=== PATIENT | female | born 1995 | race Hispanic/Latino ===

== ENCOUNTER 2016-03-22 23:20 | Inpatient (IN) | payer MEDICAID ==
[~2016-03-22] VITALS: Ht 157.5 cm; Wt 65.3 kg
[~2016-03-22 23:20] MED LIST: BENZ-12 PO; Methylergonovine 0.2 mg/mL Inj IM ONE
[2016-03-23] MEDS ORDERED: Hemorrhage Kit, Post Partum XX ONE ×2 (00:20→09:00)
[2016-03-23] MEDS ORDERED: fentaNYL-PF 50 mCg/mL 2 mL Inj IVPUSH PRN (00:20)
[2016-03-23] MEDS ORDERED: Sodium Chloride LOK Flush 10 mL Syringe IVFLUSH PRN (00:20)
[2016-03-23] MEDS ORDERED: Methylergonovine 0.2 mg/mL Inj IM PRN ×2 (00:20→09:00)
[2016-03-23] MEDS ORDERED: Oxytocin 30 Units/500 mL LR 30 UNITS in IV Premix 1 EACH IV PRN ×2 (00:20→09:00)
[2016-03-23] MEDS ORDERED: Carboprost 250 mCg/mL Inj IM PRN ×2 (00:20→09:00)
[2016-03-23] MEDS ORDERED: Oxytocin 10 Unit/mL Inj IM PRN ×2 (00:20→09:00)
[2016-03-23 00:28] LABS: Mean Corpuscular Hemoglobin 32.8 pg (27.0-35.0); Mean Corpuscular Volume 94.2 fL (81-100)
[2016-03-23] MEDS: Lactated Ringer's 1,000 ML IV PRN ×2 (00:56→02:25)
--- NOTE | 2016-03-23 08:45 | HP ---
[address] [address] HISTORY AND PHYSICAL PATIENT: NEERAJ LIMON : 1995 MR#: [id number] ADMIT: 03/22/2016 JOB ID: [id number] HISTORY OF PRESENT ILLNESS: This is a 20-year-old female. She is 1, para 0, and she is 39 weeks. She presented to [facility] for contraction. It was noticed she was 4 cm dilated, with bulging membrane. Contraction was every 3-5 minutes. Her membranes intact. The heart tracing was category 1. She has no other complaints. The patient has been having routine care at [facility]. Her labs were noticed that her blood type was O positive. She is rubella immune. RPR negative. HBsAg negative. HIV negative. She is GBS negative. She has no known drug allergies. She declined other medical problems besides hypothyroidism, which she was on 50 mcg of levothyroxine and her TSH level in normal range during . She declined other surgeries before. She declined smoking, alcohol or drug usage in . PHYSICAL EXAMINATION: She is afebrile. Her vitals stable in normal range. Cardiac: RRR. No murmur. Pulmonary: Bilaterally clear. Abdomen: Soft, , liz every 3-5 minutes. Category 1 heart tracing. Cervix was 4 cm dilated, intact membranes. Extremities nontender. ASSESSMENT AND PLAN: A 30-year-old female, 1, para 0, at 39 weeks in active labor. 1. We will admit her to [facility]. 2. Offered the patient pain medication for her IV and epidural if she needed. 3. At this time, we will do expectant management to watch for labor progress. Expect a vaginal delivery.
[2016-03-23] MEDS: Lactated Ringer's 1,000 ML IV SCH ×2 (08:59→16:59)
[2016-03-23] MEDS ORDERED: LANOlin HPA 7 Gm Ointment TOPICAL PRN (09:00)
[2016-03-23] MEDS ORDERED: Witch Hazel-Glycerin Pads TOPICAL PRN (09:00)
[2016-03-23] MEDS ORDERED: Benzocaine (Dermoplast) 20% 60 Gm Spray TOPICAL PRN (09:00)
--- NOTE | 2016-03-23 09:19 | PCM.HPOB ---
Subjective Date of Service: Mar 23, 2016 Referring Provider: Admitting Physician: Lcuila Holman MD Primary Care Physician: Nopcp Attending Physician: Lucila Holman MD Chief Complaint Term labor History of Present History of Present Illness 20 y/o female at 39wks 5days per OB ultrasound on 11/24/15 who presented to the [facility] with contractions. complicated by hypothyroidism and late entry into care. TSH level in normal range during , currently on 50mcg of Levothyroxine daily. Pre-filomena labs: Blood type: O+ Rh (D) type positive Antibody screen negative GBS negative Rubella immune RPR nonreactive HBsAg negative HepC negative HIV screen nonreacdtive TSH 0.747 HbA1c 5.2 Hgb/Hct 10.6/33.8 OB Ultrasound >14wks anatomy (11/24/15): single living intrauterine gestation, GINO 03/25/16 . OB History: (1), Para (0) Past Medical History Gynecologic History: No hx of abnormal pap Medical History: Hypothyroidism Surgical History: None Hx Tobacco Use: No Hx Alcohol Use: No Hx Substance Use: No Past Family History Family History Maternal aunt-diabetes mellitus Living Arrangement: with Family Review of Systems ROS All other systems reviewed and negative, except as noted. Medications Home medications Ferrous sulfate 325mg daily Levothyroxine 50mcg daily Ondansetron 4mg q8h vitamin Allergy Coded Allergies: No Known Allergies (Unverified , 01/30/15) Exam Vital Signs temp 36.5, BP 134/95, HR 72 Objective Physical exam deferred to admitting Attending physician at time of note as patient was delivering. General appearance: well developed, well nourished and healthy appearing female undergoing vaginal delivery. Heart rate regular rate on monitor and status reassuring. Labs/Diagnostics Labs White Blood Count 8.0, Red Blood Count 4.66, Hemoglobin 15.3, Hematocrit 43.9, Mean Corpuscular Volume 94.2, Mean Corpuscular Hemoglobin 32.8, Mean Corpuscular Hemoglobin Concent 34.9, Red Cell Distribution Width 14.4, Platelet Count 129 Lab/Diagnostic Information Blood type: O+ Rh (D) type positive Antibody screen negative GBS negative Rubella immune RPR nonreactive HBsAg negative HepC negative HIV screen nonreacdtive Initial labs (11/17/15): TSH 0.747, HbA1c 5.2, H/H 10.6/33.8 OB Ultrasound >14wks anatomy (11/24/15): single living intrauterine gestation, GINO 03/25/16 Maternal Blood Type: O Hx Rho(D) Immune Globulin: Yes Antibody Screen: negative Group B Strep Results: Negative Rubella: Immune Lab History: Negative for: Hx HIV OB Intrapartum Assessment/Plan Assessment 20 y/o female at 39wks 5days who presented in active labor. Anticipate . Pain Evaluation: Adequate Pain Control Post plan: Continue routine post care Attending Statement The patient was seen and examined and I agree with the history, exam and plan as outlined in the note above. Liana Sena DO Mar 23, 2016 07:03 Nuvia Fagan MD Mar 31, 2016 09:28
--- NOTE | 2016-03-23 14:51 | OP ---
[address] [address] OPERATIVE REPORT PATIENT: NEERAJ LIMON : 1995 MR#: [id number] ADMIT: 03/22/2016 JOB ID: [id number] DATE OF SURGERY: 03/23/2016 PREOPERATIVE DIAGNOSIS(ES): 1. A 39+5 week intrauterine . 2. Hypothyroidism. POSTOPERATIVE DIAGNOSIS(ES): 1. A 39+5 week intrauterine . 2. Hypothyroidism. PROCEDURE PERFORMED: Spontaneous vaginal delivery of liveborn infant born on March 23, 2016 at 7:22 hours weighing 3143 g or 6 pounds 15 ounces, with Apgars of 8 at one minute, 9 at five minutes. SURGEON: Nuvia Fagan MD. ANESTHESIA: Local. ESTIMATED BLOOD LOSS: 700 cc. FLUID REPLACEMENT: Crystalloid in labor. COMPLICATIONS: None apparent. INDICATIONS: This is a 20-year-old G 1, P 0 female who presented at 39+ five weeks gestation complaining of regular uterine contractions. She was admitted in active labor. She was noted to have a bulging bag of water at the time of admission. She spontaneously ruptured on her own and progressed to complete shortly after admission. laboratory data showed blood type O positive, antibody screen negative, rubella immune, RPR nonreactive, HIV negative and GBS negative. DESCRIPTION OF PROCEDURE: The patient was noted to be complete and pushing so she was placed in the dorsal lithotomy position, prepped and draped in the usual sterile fashion for delivery. She pushed and the infant delivered spontaneously in the CHRISTIANO position over an intact perineum. A nuchal cord was noted and a single nuchal cord was reduced around the baby's neck. The anterior shoulder delivered easily, followed by the posterior shoulder and the remainder of the infant was then easily delivered. After a 60 second cord clamping delay, the cord was then clamped, cut, and the was on the mother's abdomen at this time. Cord blood was then obtained. The placenta was delivered intact spontaneously and passed off the table. Thirty units of Pitocin was placed in the IV bag to firm the uterus. Examination of the vaginal vault showed bilateral labial lacerations as well as a second-degree laceration. The right labial laceration was repaired with 4-0 Vicryl in a running, nonlocked fashion. The left labial laceration was repaired with 3-0 Vicryl in a running, nonlocking fashion. It was noted to be deeper than the opposite side. The second-degree laceration was repaired with 3-0 Vicryl in the standard fashion. The patient was noted to have some oozing so several bsisip-st-cwcly stitches were placed along the left labial laceration and along the left hymenal ring. The patient tolerated this procedure well. Recovered in labor and delivery with her infant. All sponge, needle and instrument counts were correct.
[2016-03-23] MEDS: Ascorbic Acid 500 mg Tablet PO SCH (16:35)
[2016-03-23] MEDS: oxyCODONE-Acetamin 5-325 mg Tablet PO PRN (23:59)
[2016-03-24] MEDS: Lactated Ringer's 1,000 ML IV SCH ×2 (00:59→07:51)
[2016-03-24 07:37] LABS: Mean Corpuscular Hemoglobin 32.7 pg (27.0-35.0); Mean Corpuscular Volume 96.8 fL (81-100)
--- NOTE | 2016-03-24 07:54 | PCM.PNOBPP ---
Subjective Date of Service Mar 24, 2016 Post : Spontaneous Vaginal Delivery Visit History 20 y/o now P1 female on post- day 1 after at 39wks 5days. complicated by hypothyroidism and late entry into care. TSH level in normal range during , currently on 50mcg of Levothyroxine daily. Pre-filomena labs: Blood type: O+ Rh (D) type positive Antibody screen negative GBS negative Rubella immune RPR nonreactive HBsAg negative HepC negative HIV screen nonreacdtive TSH 0.747 HbA1c 5.2 Hgb/Hct 10.6/33.8 OB Ultrasound >14wks anatomy (11/24/15): single living intrauterine gestation, GINO 03/25/16 Subjective Patient is doing well this morning. Pain well controlled with oral medications. She reports increased pain this morning but it is tolerable and she is due for more medication. Lochia is normal. She is ambulating and voiding without difficulty. She expresses concern about not receiving her home Levothyroxine yesterday. She plans on when she is more comfortable but for now bottle feeding is going well. She denies fever, chills, chest pain, shortness of breath, nausea of vomiting. Lochia: Normal Pain Management: PO pain meds Gastrointestinal: No N/V Postop Activity: Ambulating Independently Group B Strep Results: Negative Rubella: Immune Blood Type: O Labs Laboratory Tests 03/24/16 06:55: Exam Vital Signs Vital Signs temp 36.7, SBP range 91-113 and DBP range 94-70, HR 77, RR 16, SpO2 99% on room air. Vital Signs: VS reviewed, stable Exam Abdomen: Fundus firm, Abdomen soft, Abdomen appropriately tender : Voiding without difficulty Extremities: No tenderness/swelling Lungs: Clear to Auscultation Heart: Regular Rate/Rhythm General: Alert, Oriented X3 OB Post Assessment/Plan Assessment 20 y/o now P1 on day 1 from at 39wks 5days who is recovering appropriately. complicated by hypothyroidism with normal TSH during on 50mcd daily of Levothyroxine. Problems: (1) Spontaneous vaginal delivery Plan: -Patient is bottle feeding which is going well, plans to breast feed when she is more comfortable. -Continue support/teaching -PO pain medications as needed -Anticipate discharge today Status: Acute ICD Code: O80 (2) Hypothyroidism Qualifiers: Hypothyroidism type: unspecified Qualified Code: E03.9 - Hypothyroidism, unspecified Plan: -TSH normal during , pt asymptomatic -Continue home dosing Levothyroxine, 50mcg daily -Recommend follow up with PCP for repeat thyroid function testing. Status: Acute ICD Code: E03.9 Pain Management: Ibuprofen 800mg PO Q6h prn Oxycodone-acetaminophen 5-325mg PO Q4h prn . Pain Evaluation: Adequate Pain Control Post plan: Continue routine post care Attending Statement The patient was seen and examined together with Dr. Sena on 03/24/2016 and I agree with the history, exam and plan as outlined in the note above. / MD Nathen Kincaid Courtney M DO Mar 24, 2016 07:35 Mike Peoples MD Mar 31, 2016 09:45
[2016-03-24] MEDS: Ascorbic Acid 500 mg Tablet PO SCH (07:57)
[2016-03-24] MEDS: oxyCODONE-Acetamin 5-325 mg Tablet PO PRN (08:00)
--- NOTE | 2016-03-24 08:03 | PCM.DIOB ---
Obstetrical Disch Instruction Date of Service: Mar 24, 2016 Dates of Hospitalization Date of Hospital Admission Mar 22, 2016 at 23:40 Providers Admitting Physician: Lucila Holman MD Primary Care Physician: Cole Attending Physician: Lucila Holman MD Discharge Diagnosis Discharge Diagnosis Term with normal spontaneous vaginal delivery Hypothyroidism Problems: (1) Spontaneous vaginal delivery Status: Acute ICD Code: O80 (2) Hypothyroidism Qualifiers: Hypothyroidism type: unspecified Qualified Code: E03.9 - Hypothyroidism, unspecified Status: Acute ICD Code: E03.9 Diet Discharge Diet: No restrictions Activity Discharge Activity-General: Pelvic Rest for 6 weeks, Balance rest and activity Additional Instructions Discharge Instructions Continue your vitamin. Please take the iron and vitamin c together for your anemia. Do not take more pain medication (Percocet) than is necessary -- less is better. Percocet pills have Tylenol (acetaminophen) in them at 325mg per pill. Do not take Tylenol in addition to your pain medication but should take one or the other. Both iron and Percocet can give you constipation so you have also been given a prescription for docusate to keep you regular. Pelvic rest for 6 weeks (nothing per vagina including intercourse, tampons) If you have a fever greater than 100.4, please call [facility]. There is always someone carbon blocks press operator to talk to. If you have an increase in bleeding, call [facility]. If you have a lot of bleeding suddenly, especially if you have symptoms of dizziness & weakness with it, get emergency help. Be sure to follow up in 6 weeks at [facility]. When you see [facility] in 6 weeks, you will be informed of the results of all the labs. If you start experiencing extreme depression, especially if you feel that you are a danger to yourself or your family, seek emergency help. You have been through a lot -- BE SURE TO TAKE CARE OF YOURSELF. Follow Up Plan Follow Up Plan Follow up at [facility] in 6 weeks. [facility] Call your provider for: Fever or Chills, Shortness of breath, Heavy vaginal bleeding, Excessive constipation Liana Sena DO Mar 24, 2016 08:03
--- NOTE | 2016-03-24 08:19 | PCM.DC.OB ---
Obstetrical Discharge Summary Date of Service Mar 24, 2016 Date of hospital admission Mar 22, 2016 at 23:40 Date of Discharge: Mar 24, 2016 Providers Admitting Physician: Lucila Holman MD Primary Care Physician: Cole Attending Physician: Lucila Holman MD Diagnosis at Time of Discharge Term with normal spontaneous vaginal delivery Hypothyroidism Problems: (1) Spontaneous vaginal delivery Status: Acute ICD Code: O80 (2) Hypothyroidism Qualifiers: Hypothyroidism type: unspecified Qualified Code: E03.9 - Hypothyroidism, unspecified Status: Acute ICD Code: E03.9 Brief History and Physical: 20 y/o now P1 on day #1 from at 39wks 5days who is recovering appropriately. Vital Signs: temp 36.7, SBP range 91-113 and DBP range 94-70, HR 77, RR 16, SpO2 99% on room air. General: Alert, oriented x3 Abdomen: Fundus firm, Abdomen soft, Abdomen appropriately tender : Voiding without difficulty Extremities: No tenderness/swelling Lungs: Clear to Auscultation Heart: Regular Rate/Rhythm . Hospital Course: 20 y/o female who presented at 39wks 5days per OB ultrasound on 11/24/15 with contractions and underwent after SROM. complicated by hypothyroidism and late entry into care. TSH level in normal range during , currently on 50mcg of Levothyroxine daily. She was discharged on day #1 in stable condition and follow up planned in 6wks. Pre- labs: Blood type: O+ Rh (D) type positive Antibody screen negative GBS negative Rubella immune RPR nonreactive HBsAg negative HepC negative HIV screen nonreacdtive TSH 0.747 HbA1c 5.2 Hgb/Hct 10.6/33.8 OB Ultrasound >14wks anatomy (11/24/15): single living intrauterine gestation, GINO 03/25/16 . ([Ascorbic Acid]) 500 MG TABLET 500 MG PO DAILY Prescribed by: NELLY GURROLA DO Benzonatate (Tessalon Perle) 100 Mg Capsule 100 MG PO TID PRN PRN For Cough Prescribed by: EULOGIO HERNANDEZ MD Docusate Sodium (Colace) 100 Mg Capsule 100 MG PO BID Prescribed by: NELLY GURROLA DO Ferrous Sulfate (Feosol) 325 Mg Tablet 325 MG PO DAILY Prescribed by: NELLY GURROLA, Ibuprofen (Ibuprofen) 800 Mg Tablet 800 MG PO Q8H PRN PRN For Pain Prescribed by: NELLY GURROLA, oxyCODONE-Acetaminophen 5-325 mg (oxyCODONE-Acetaminophen 5-325 mg) 1 Each Tablet 1-2 TAB PO Q4H PRN PRN For Pain Prescribed by: NELLY GURROLA, DO Discharge Medications: Colace 100 mg BID PO PRN for constipation #60-100 Ferrous sulfate 325 mg PO daily, #90 Vitamin C 500 mg PO daily, #90. Take with iron Ibuprofen 800mg, take 1 tab q8h PO PRN for pain . Follow-up plan Follow up at [facility] in 6 weeks. Discharge Diet: No restrictions Discharge Activity-General: Pelvic Rest for 6 weeks, Balance rest and activity Patient instructions Continue your vitamin. Please take the iron and vitamin c together for your anemia. Iron can give you constipation so you have also been given a prescription for docusate to keep you regular. Be sure to follow up in 6 weeks at [facility]. Pelvic rest for 6 weeks (nothing per vagina including intercourse, tampons) If you have a fever greater than 100.4, please call [facility]. There is always someone correctional supervising cook to talk to. If you have an increase in bleeding, call [facility]. If you have a lot of bleeding suddenly, especially if you have symptoms of dizziness & weakness with it, get emergency help. When you see [facility] in two weeks, you will be informed of the results of all the labs. If you start experiencing extreme depression, especially if you feel that you are a danger to yourself or your family, seek emergency help. You have been through a lot -- BE SURE TO TAKE CARE OF YOURSELF. Attending Statement: The patient was seen and examined together with Dr. Gurrola on 03/24/2016 and I agree with the history, exam and plan as outlined in the note above. / MD Nathen Kincaid Courtney M DO Mar 24, 2016 08:11 Mike Peoples MD Mar 31, 2016 09:46
[2016-03-24] MEDS ORDERED: Ascorbic Acid PO (08:48)
[2016-03-24] MEDS ORDERED: OXYC1TAB24 PO (08:48)
[2016-03-24] MEDS ORDERED: IBUP800T28 PO (08:48)
[2016-03-24] MEDS ORDERED: DOCU-41 PO (08:48)
[2016-03-24] MEDS ORDERED: FERR-74 PO (08:48)
[2016-03-24 11:11] VITALS: BP 105/57; PULSE 84
== END 2016-03-24 15:25 | disposition home or self-care (01) | DRG 775 ==
LOC: FBCO 23:20 → FBC 23:40
PROVIDERS: ADMIT Obstetrics & Gynecology; ATTEND Obstetrics & Gynecology
PROC: 10E0XZZ Delivery of Products of Conception, External Approach (ICD-10-PCS; principal; 2016-03-23)
PROC: 0KQM0ZZ Repair Perineum Muscle, Open Approach (ICD-10-PCS; 2016-03-23)
PROC: 0UQMXZZ Repair Vulva, External Approach (ICD-10-PCS; 2016-03-23)
DX: O70.1 Second degree perineal laceration during delivery (principal); Z37.0 Single live birth; E03.9 Hypothyroidism, unspecified; Z3A.39 39 weeks gestation of pregnancy; O09.33 Supervision of pregnancy with insufficient antenatal care, third trimester; O99.283 Endocrine, nutritional and metabolic diseases complicating pregnancy, third trimester; O69.81X0 Labor and delivery complicated by cord around neck, without compression, not applicable or unspecified; O71.82 Other specified trauma to perineum and vulva